=== PATIENT | male | born 1985 | race Caucasian/White ===

== ENCOUNTER 2019-01-23 15:07 | Emergency (ER) | payer BC ==
[~2019-01-23] VITALS: Ht 182.8 cm; Wt 108.9 kg
[~2019-01-23 15:07] MED LIST: ATIVAN0.5 MG PO; LEXAPRO20 MG PO
[2019-01-23] MEDS ORDERED: CEPHALEXIN500 M1 PO (16:11)
== END 2019-01-23 16:19 | disposition home or self-care (01) ==
LOC: ED 15:07
DX: S61.012A Laceration without foreign body of left thumb without damage to nail, initial encounter (principal); Z79.899 Other long term (current) drug therapy; W26.0XXA Contact with knife, initial encounter; Y93.89 Activity, other specified; Y92.89 Other specified places as the place of occurrence of the external cause; Y99.8 Other external cause status